=== PATIENT | male | born 1940 | race Caucasian/White ===

== ENCOUNTER → 2019-07-04 10:30 | Outpatient (BNVA) | payer MEDICARE, SELFPAY | PROVIDERS: Family Provider Family Medicine; PCP Family Medicine; Visit Provider Urology | DX: C67.5 Malignant neoplasm of bladder neck (principal); C67.1 Malignant neoplasm of dome of bladder | CPT/HCPCS: 81001 ==

== ENCOUNTER 2019-10-19 16:15 | Observation (INO) | payer MEDICARE, SELFPAY ==
--- NOTE | 2019-10-16 10:25 | ANES.PREANE2 ---
Pre-Anesthetic Assessment Pre-Anesthetic Assessment: Height/Weight: Height 1.73 m Weight 145.15 kg Preop Diagnosis: Recurrent bladder cancer Proposed Procedure: Operation Date: 10/19/19 13:55 Proposed Procedures p Transurethral Resection Bladder Tumor 90735 C67.5(Not Applicable) - Gil Aragon MD s Cystoscopy(Not Applicable) - Gil Aragon MD Familial anesthetic complications: Sore throat after general Social: Social History: No alcohol and No tobacco Comment: former smoker Exam: Pre-Anes Outpt Exam: alert, oriented x 3, clear to auscultation bilaterally and regular rate & rhythm Airway: Cervical ROM: WNL MP: 4 Dentition: Other (missing) Additional comments: large neck circumference Pulmonary: Pulmonary: COPD and Sleep apnea CV/HEM: CV/HEM: CAD and HTN Comments: hx cabg in 1994 stents 2004 : : None reported Hepatic: Hepatic: None reported GI: GI: None reported Metabolic: Metabolic: Morbid obesity Musc/skel: Musc/skel: OA/DJD Neuropsych: Neuropsych: None reported Anesthetic Plan: ASA status: 3 Anesthesia: General Risk of > 500 ml blood loss (7ml/kg in children): No PFSH Anesthesia PFSH: Medical History (Updated 10/10/19 @ 15:45 by Gil Aragon MD) Cancer, bladder, neck Diabetes Lower urinary tract symptoms 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
--- NOTE | 2019-10-16 10:31 | ECG_ITS ---
Measurements Intervals [place] Rate: 49 P: 17 [place]: 171 QRS: 13 QRSD: 111 T: 71 QT: 484 QTc: 441 SINUS BRADYCARDIA MODERATE INTRAVENTRICULAR CONDUCTION DELAY [110+ ms QRS DURATION] NONSPECIFIC ST & T-WAVE ABNORMALITY Compared to ECG 02/10/2019 10:43:46 Intraventricular conduction delay now present T-wave abnormality still present Electronically Signed On 10-16-2019 17:07:35 CDT by Yobani Doe M.D. [email or web address]
[2019-10-16 10:44] LABS: Basophils % 0.4 %; Eosinophils # 0.2 10^3/uL (0.0-0.8); Eosinophils % 3.3 %; Hematocrit 34.2 % (42.0-52.0); Hemoglobin 10.4 g/dL (11.7-16.6); Lymphocytes # 1.2 10^3/uL (0.8-4.8); Lymphocytes % 25.2 %; Mean Corpuscular HGB Conc 30.4 g/dL (30.0-36.0); Mean Corpuscular Hemoglobin 29.5 pg (28.0-34.0); Mean Corpuscular Volume 97.2 fL (80-94); Mean Platelet Volume 10.7 fL (7.4-10.4); Monocytes # 0.5 10^3/uL (0.2-0.9); Monocytes % 10.7 %; Neutrophils # 2.9 10^3/uL (1.8-7.7); Neutrophils % 60.2 %; Nucleated Red Blood Cells % 0 %; Platelet Count 187 10^3/cmm (130-400); Red Blood Count 3.52 10^6/uL (4.1-5.3); Red Cell Distribution Width 14.6 % (12.1-15.1); White Blood Count 4.8 10^3/uL (4.0-10.0)
[2019-10-16 10:57] LABS: Anion Gap 14.9 (5-19); Blood Urea Nitrogen 26 mg/dL (8-23); Calcium 8.7 mg/dL (8.5-10.5); Carbon Dioxide 25 mmol/L (22-29); Chloride 104 mmol/L (98-107); Glucose 108 mg/dL (65-115); Osmolality Calculated 285 mOsm/kg (285-295); Potassium 4.9 mmol/L (3.5-5.1); Sodium 139 mmol/L (136-145)
[2019-10-19] VITALS (12 sets, daily range): BP systolic 112–151; BP diastolic 46–84; PULSE 50–81; RESP 18–26; TEMP 36.1–36.8; O2SAT 93–99; BMI 48.6
[2019-10-19] MEDS: sodium chloride 0.9% 1,000 ML 30 ML IV (12:37)
[2019-10-19 12:43] LABS: Glucose Point of Care 104 mg/dL (70-110)
--- NOTE | 2019-10-19 14:14 | W.PM.OPSUD ---
Surgery/Procedure H&P Update DATE OF PROCEDURE: October 19, 2019 DATE H&P PERFORMED: 10/10/19 H&P UPDATE INFORMATION: I have reviewed H&P completed within last 30 days, I have examined patient prior to procedure, No changes to prior documentation and H&P is in [facility] EMR on date indicated PREOP DIAGNOSIS: Recurrent bladder cancer PLANNED PROCEDURE: Operation Date: 10/19/19 13:55 Proposed Procedures p Transurethral Resection Bladder Tumor 67545 C67.5(Not Applicable) - Gil Aragon MD s Cystoscopy(Not Applicable) - Gil Aragon MD
--- NOTE | 2019-10-19 14:15 | P.OP_ITS ---
Operative Report Date of procedure: October 19, 2019 Pre-op Diagnosis: Recurrent bladder cancer, dome and verumontanum Post-op diagnosis: same Procedure Done: transurethral resection of bladder tumor medium Pathology: Lesion from verumontanum and dome of bladder Surgeon: Mahesh Anesthesia: General (Marcellus Cedeño CRNA) Estimated blood loss: Minimal Urine output: Not measured Complications: None Condition: stable Disposition: PACU Brief History: Torres is a very pleasant 79-year-old white male with history of bladder cancer who on routine surveillance cystoscopy protocol was discovered to have a papillary lesion suspicious for transitional cell carcinoma on the verumontanum and a recurrence at the dome. Admitted now for resection of those lesions. Procedure: After routine preoperative evaluation examination and obtaining of informed consent he was taken to the operating suite on 10/19/2019 where general anesthesia was started without difficulty after appropriate timeout was performed, SCDs confirmed to be functioning, preoperative antibiotics administered, beta-sarah protocol confirmed. Prepped and draped in the usual sterile fashion in dorsolithotomy position pain careful attention to avoiding pressure points. 21 Egyptian cystoscope with 30 degree lens was introduced into the urethral meatus and advanced into the bladder under videoscopy. Bladder was systematically examined. The lesion seen in the clinic on the verumontanum was easily identified. It was resected with a cold cup of biopsy forceps and then the site fulgurated meticulously with Bugbee cautery probes for complete hemostasis. As expected the lesion of the stone was easily identified and it was also resected with cold cup biopsy forceps and then the base fulgurated completely. Its total diameter measured about 2.5 -3.0 cm in largest diameter. Meticulous hemostasis was confirmed. No residual lesion was identified. The remainder of the bladder mucosal was normal. After hemostasis was confirmed cystoscopically the bladder was drained with a 20 Egyptian three-way Muller catheter. Output was clear. Tolerated the procedure well without complications and was awakened in the operating room and returned to the recovery in stable condition. PLANS: 1. Observe overnight. 2. Discharge tomorrow without catheter if urine clear.
--- NOTE | 2019-10-19 16:19 | SUR.PHASEI ---
1611 PATIENT TO PACU FROM OR AT THIS TIME. NASAL AIRWAY IN PLACE TO RIGHT NARE. SPO2 100%, SIMPLE MASK AT 8L. PATIENT RESTLESS, REORIENTED. BRUMFIELD CATH IN PLACE, DRAINING CLEAR, YELLOW URINE.
--- NOTE | 2019-10-19 16:20 | SUR.PHASEI ---
1620 NASAL AIRWAY REMOVED AT THIS TIME, SPO2 99% ON SIMPLE MASK.
--- NOTE | 2019-10-19 16:51 | SUR.PHASEI ---
1633 PATIENT TO MED SURG AT THIS TIME. DENIES PAIN. BRUMFIELD DRAINING CLEAR URINE. PATIENT AMBULATORY TO BED FROM [facility] WHEN ARRIVING TO MED SURG WITH STEADY GAIT.
[2019-10-19 17:23] LABS: Glucose Point of Care 95 mg/dL (70-110)
[2019-10-19] MEDS: carvedilol 25 mg Tablet PO (18:51)
[2019-10-19] MEDS: metformin 500 mg Tablet PO (18:51)
[2019-10-19] MEDS: docusate sodium 100 mg Capsule PO (18:51)
[2019-10-19 20:34] LABS: Glucose Point of Care 97 mg/dL (70-110)
[2019-10-20 03:00] VITALS: BP 95/40; PULSE 51; RESP 20; TEMP 36.4; O2SAT 96
[2019-10-20 03:35] VITALS: PULSE 64; O2SAT 95
--- NOTE | 2019-10-20 06:04 | PC.NURSE ---
END OF SHIFT NOTE Pt had no complaints of pain throughout shift. Carrillo catheter has drained 1740. Pt encouraged to continue to PO hydration. No blood or clots noted in carrillo.
[2019-10-20 06:50] LABS: Glucose Point of Care 101 mg/dL (70-110)
[2019-10-20 07:00] VITALS: BP 120/62; PULSE 48; RESP 20; TEMP 36.8; O2SAT 95
--- NOTE | 2019-10-20 07:31 | PM.DCS ---
Discharge Providers Date of Admission: 10/19/19 16:15 Date of Discharge: October 20, 2019 Attending Provider at Admission: Gil Aragon MD Attending Provider at Discharge: Gil Aragon MD Primary Care Provider: Zeferino Mckeon MD Diagnoses at Discharge Discharge Diagnosis (1) Malignant neoplasm of dome of urinary bladder: Status: Chronic (2) Transitional cell carcinoma of prostate: Status: Acute Reason for Visit Reason for Visit: Malignant neoplasm of bladder neck Hospital Course Hospital Course: He was admitted on the day of the procedure which went well. Findings intraoperatively included a papillary lesion on the verumontanum as well as on the dome of the bladder. Both were completely resected and fulgurated at the base with good hemostasis. His postoperative course was unremarkable. Urine remained clear. Catheter removed on postoperative day #1 and he voided spontaneously with clearing urine and good emptying as confirmed via bladder scan. Discharge on the afternoon of postoperative day #1 in stable condition. Physical Exam Const: COMMON NORMALS: no acute distress, alert and well nourished GENERAL APPEARANCE: well kempt and well developed ORIENTATION/CONSCIOUSNESS: not confused Resp: COMMON NORMALS: normal respiratory effort EFFORT & INSPECTION: No labored and No Actively coughing Neuro: COMMON NORMALS: no focal motor deficits SENSORIUM/ORIENTATION: Yes alert Psych: COMMON NORMALS: mental status grossly normal APPEARANCE: Yes grossly normal and Yes well kempt ATTITUDE: Yes calm and Yes engaged Urinary Catheter Management^: 2-way Urethral: Cath Placed During This Visit: yes Reason for Continuing Indwelling Catheter: Assist Healing of Perineal & Sacral Wounds- Incontinent Patients Urinary Catheter Date of Insertion: 10/19/19 Urinary Catheter Time of Insertion: 15:50 Discharge Data Data Completed and Pending: Pending at discharge Category Date Time Status Pathology: Surgic al [PTH] Routine Pth 10/19/19 16:27 Ordered Labs from last 24 hours 10/20/19 10/19/19 10/19/19 06:46 20:29 17:16 POC Glucose 101 97 95 10/19/19 12:36 POC Glucose 104 Vitals: Last Vital Signs Temp 98.2 F 10/20/19 07:00 Pulse 48 L 10/20/19 07:00 Resp 20 H 10/20/19 07:00 BP 120/62 10/20/19 07:00 Pulse Ox 95 10/20/19 07:00 Discharge Plan Discharge Patient Disposition: Home, Self-Care Condition: Stable Prescriptions: Continued atorvastatin 40 mg tablet 40 mg PO DAILY RF: 0 carvedilol 25 mg tablet 25 mg PO BID RF: 0 isosorbide mononitrate 30 mg tablet extended release 24 hr 30 mg PO DAILY RF: 0 docusate sodium [Colace] 100 mg capsule 100 mg PO BID RF: 0 metformin 500 mg tablet 500 mg PO BID RF: 0 lisinopril 20 mg tablet 20 mg PO DAILY RF: 0 bumetanide 1 mg tablet 1 mg PO DAILY RF: 0 nitroglycerin 0.3 mg tablet, sublingual 0.3 mg SUBLINGUAL Q5M PRN (Reason: Chest Pain) RF: 0 potassium chloride 10 mEq capsule, extended release 20 meq PO DAILY RF: 0 gabapentin 300 mg Capsule 300 mg PO DAILY RF: 0 hydrocodone-acetaminophen 5-325 mg tablet 1 tab PO PRN PRN (Reason: Pain) RF: 0 Held aspirin [Aspir-81] 81 mg tablet,delayed release (DR/EC) 81 mg PO DAILY RF: 0 Hold Instructions: Resume on 10/23/19. clopidogrel 75 mg tablet 75 mg PO DAILY RF: 0 Hold Instructions: Resume on 10/25/19. Discharge Orders: Discharge Order (Routine); Ordered 10/20/19 Ordered By: Gil Aragon Referrals: Gil Aragon MD [Physician] - 2 months Discharge Diet: Usual diet Discharge Activity: Limit activity as instructed Activity Restrictions/Additional Instructions: 1. Avoid heavy lifting or straining (>10 pounds) x3 weeks. 2. Can restart your aspirin early next week and Plavix in mid week. 3. Follow-up in approximately 2 months for cystoscopy in the clinic. 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
[2019-10-20 07:59] VITALS: BP 120/62; PULSE 48; RESP 20; TEMP 36.8; O2SAT 95
[2019-10-20] MEDS: metformin 500 mg Tablet PO (08:17)
[2019-10-20 08:45] VITALS: PULSE 64; O2SAT 90
[2019-10-20] MEDS: atorvastatin 40 mg Tablet PO (10:01)
[2019-10-20] MEDS: docusate sodium 100 mg Capsule PO (10:02)
[2019-10-20] MEDS: bumetanide 1 mg Tablet PO (10:02)
--- NOTE | 2019-10-20 10:02 | PC.CHAP ---
Pastoral Care Encounter/Spiritual Assessment Type of Contact [] Declined manager trust visit [] Patient/Family/Request visit [] Outpatient visit [] Follow-up visit [] Physician referral [] Code/Alert [x] Routine visit [] Staff referral [] Actively dying [] Patient sleeping [] Family support [] [] Out of room [] Palliative care [] [] Receiving care in room [] Pre-surgical visit [] Trauma [] Long length of stay [] ICU visit [] Other: Relational/Emotional Strength [] Patient feels connected with others/family/visitors/staff [] Distress [] Loneliness/isolation [] Abandonment Spirituality of Patient [] Person of Jolene [] Attends Taoism of their Jolene [] Believes in Prayer [] Reads Bible or Yazidi materials [] There are Spiritual issues to be addressed Coat Ironer Hand Interventions [x] Prayer [] Active listening [] Non-anxious presence [] Spiritual/emotional support [] Crisis/trauma care [] Spiritual counseling [] Bereavement support [] Provided bereavement packet [] Provided Bible/devotional materials [] Provided toy/stuffed animal, coloring book to patient or family member [] Provided Communion [] Anointing/[place] [] Salvation [x] Completed spiritual assessment [] Other: Impact on Illness or Injury [] Angry [] Fearful [] Anxious [] Often cries [] Exhaustion [] Unable to work [] Unable to attend taoism [] Unable to walk/stand [] Unable to read [] Unable to drive [] Unable to eat/drink [] Unable to sleep [] Unable to be with family [] Patient intubated [] Other: Summary Patient preparing to return home. [place] all his issues were address. Doesn't believe in taoism, so we just thanked God for his quick healing and sending him home. Time spent with patient 15 min
[2019-10-20] MEDS: gabapentin 300 mg Capsule PO (10:05)
[2019-10-20] MEDS: lisinopril 20 mg Tablet PO (10:05)
[2019-10-20] MEDS: isosorbide mononitrate ER 30 mg Tablet PO (10:05)
[2019-10-20] MEDS: carvedilol 25 mg Tablet PO (10:05)
[2019-10-20 10:49] VITALS: BP 116/71; PULSE 54; RESP 20; TEMP 36.8; O2SAT 95
--- NOTE | 2019-10-20 16:08 | PC.NURSE ---
Muller removed at 1000. Pt voided 50 mL of light pink urine around 1015. Pt voided 100 mL of light pink urine around 1045. Subsequent voids were pale yellow with a total volume of ~550 mL. Pt was given discharge instructions and had no complaints of pain at time of discharge.
== END 2019-10-20 16:14 | disposition home or self-care (01) ==
LOC: MEDSURG 16:15
PROVIDERS: Anesthesiology; Admitting Provider Urology; PCP Family Medicine; Visit Provider Urology
PROC: 0TBB8ZZ Excision of Bladder, Via Natural or Artificial Opening Endoscopic (ICD-10-PCS; CPT 52235; principal; 2019-10-19 13:50)
PROC: 0TJB8ZZ Inspection of Bladder, Via Natural or Artificial Opening Endoscopic (ICD-10-PCS; CPT 52000; 2019-10-19 13:50)
DX: C67.8 Malignant neoplasm of overlapping sites of bladder (principal); C61 Malignant neoplasm of prostate; J44.9 Chronic obstructive pulmonary disease, unspecified; G47.30 Sleep apnea, unspecified; I25.10 Atherosclerotic heart disease of native coronary artery without angina pectoris; I10 Essential (primary) hypertension; M19.90 Unspecified osteoarthritis, unspecified site; E66.01 Morbid (severe) obesity due to excess calories; Z68.42 Body mass index [BMI] 45.0-49.9, adult; E11.9 Type 2 diabetes mellitus without complications; Z79.84 Long term (current) use of oral hypoglycemic drugs; Z87.891 Personal history of nicotine dependence
CPT/HCPCS: 52235; 12345; 36415; 36416; 80048; 82962; 85025; 88305; 93005; G0378; J0330; J2001; J2704; J3010; J3490; J7030

== ENCOUNTER → 2019-12-20 12:36 | Outpatient (BNVA) | payer MEDICARE, SELFPAY | PROVIDERS: PCP Family Medicine; Visit Provider Urology | DX: C67.1 Malignant neoplasm of dome of bladder (principal); C67.5 Malignant neoplasm of bladder neck | CPT/HCPCS: 81001 ==

== ENCOUNTER → 2020-04-02 09:15 | Outpatient (BNVA) | payer MEDICARE, SELFPAY | PROVIDERS: PCP Family Medicine; Visit Provider Urology | DX: C67.1 Malignant neoplasm of dome of bladder (principal); C61 Malignant neoplasm of prostate | CPT/HCPCS: 81003 ==

== ENCOUNTER → 2020-09-10 09:30 | Outpatient (BNVA) | payer MEDICARE, SELFPAY | PROVIDERS: PCP Family Medicine; Visit Provider Urology | DX: C67.1 Malignant neoplasm of dome of bladder (principal) | CPT/HCPCS: 81003 ==

== ENCOUNTER → 2020-10-23 09:00 | Outpatient (BNVA) | payer MEDICARE, SELFPAY | PROVIDERS: PCP Family Medicine; Visit Provider Urology | DX: C61 Malignant neoplasm of prostate (principal); C67.1 Malignant neoplasm of dome of bladder; C67.5 Malignant neoplasm of bladder neck | CPT/HCPCS: 81003 ==

== ENCOUNTER → 2021-01-31 09:51 | Outpatient (BNVA) | payer MEDICARE, SELFPAY | PROVIDERS: PCP Family Medicine; Visit Provider Urology | DX: C61 Malignant neoplasm of prostate (principal) | CPT/HCPCS: 81003 ==

== ENCOUNTER → 2021-04-01 09:22 | Outpatient (BNVA) | payer MEDICARE, SELFPAY | PROVIDERS: PCP Family Medicine; Visit Provider Urology | DX: C61 Malignant neoplasm of prostate (principal); C67.5 Malignant neoplasm of bladder neck | CPT/HCPCS: 81003 ==

== ENCOUNTER → 2021-07-01 09:38 | Outpatient (BNVA) | payer MEDICARE, SELFPAY | PROVIDERS: PCP Family Medicine; Visit Provider Urology | DX: C61 Malignant neoplasm of prostate (principal) | CPT/HCPCS: 81003 ==

== ENCOUNTER → 2021-07-18 11:27 | Outpatient (BNVA) | payer MEDICARE, SELFPAY | PROVIDERS: PCP Family Medicine; Visit Provider Urology | DX: C61 Malignant neoplasm of prostate (principal); C67.5 Malignant neoplasm of bladder neck; C67.1 Malignant neoplasm of dome of bladder | CPT/HCPCS: 81003 ==

== ENCOUNTER → 2021-09-30 14:49 | Outpatient (BNVA) | payer MEDICARE, SELFPAY | PROVIDERS: PCP Family Medicine; Visit Provider Urology | DX: C67.1 Malignant neoplasm of dome of bladder (principal); C67.9 Malignant neoplasm of bladder, unspecified; C67.5 Malignant neoplasm of bladder neck; C67.8 Malignant neoplasm of overlapping sites of bladder; C61 Malignant neoplasm of prostate | CPT/HCPCS: 52224; 81003 ==

== ENCOUNTER → 2022-03-06 09:30 | Outpatient (BNVA) | payer MEDICARE, SELFPAY | PROVIDERS: PCP Family Medicine; Visit Provider Urology | DX: C67.8 Malignant neoplasm of overlapping sites of bladder (principal); C67.9 Malignant neoplasm of bladder, unspecified; C67.1 Malignant neoplasm of dome of bladder | CPT/HCPCS: 52224; 81003; J9280 ==

== ENCOUNTER → 2022-05-22 08:46 | Outpatient (BNVA) | payer MEDICARE, SELFPAY | PROVIDERS: PCP Family Medicine; Visit Provider Urology | DX: C67.8 Malignant neoplasm of overlapping sites of bladder (principal); D09.0 Carcinoma in situ of bladder | CPT/HCPCS: 52224; 81003; J9280 ==

== ENCOUNTER → 2022-09-17 09:30 | Outpatient (BNVA) | payer MEDICARE, SELFPAY | PROVIDERS: PCP Family Medicine; Visit Provider Urology | DX: C67.8 Malignant neoplasm of overlapping sites of bladder (principal) | CPT/HCPCS: 52224; 81003; J9280 ==

== ENCOUNTER → 2022-11-10 10:00 | Outpatient (BNVA) | payer MEDICARE, SELFPAY | PROVIDERS: PCP Family Medicine; Visit Provider Urology | DX: C67.8 Malignant neoplasm of overlapping sites of bladder (principal); C67.1 Malignant neoplasm of dome of bladder | CPT/HCPCS: 51720; 52224; 81003; J9280 ==